=== PATIENT | female | born 1950 | race Caucasian/White ===

== ENCOUNTER 2016-12-08 16:25 | Emergency (ER) | payer MEDICAID ==
[2016-12-08 16:34] VITALS: TEMP 97.7
--- NOTE | 2016-12-08 16:36 | EDPHY ---
H & P Stated Complaint: dizzy, feels a pulse, while walking to gym HPI/ROS: CHIEF COMPLAINT: SVT HISTORY OF PRESENT ILLNESS: Patient is a 65-year-old female who comes to the emergency department complaining of SVT. She states that she began having palpitations and feeling lightheaded about 10 minutes ago. She has had multiple episodes of SVT in her life. She was worked up in [place] for possible ablation but ultimately did not have it done. She has not had any recent fevers or illness. She denies chest pain or shortness of breath. REVIEW OF SYSTEMS: Constitutional: denies: chills, fever, recent illness, recent injury EENTM: denies: blurred vision, double vision, nose congestion Respiratory: denies: cough, shortness of breath Cardiac: See HPI Gastrointestinal/Abdominal: denies: abdominal pain, diarrhea, nausea, vomiting, blood streaked stools Genitourinary: denies: dysuria, frequency, hematuria, pain Musculoskeletal: denies: joint pain, muscle pain Skin: denies: lesions, rash, jaundice, bruising Neurological: denies: headache, numbness, paresthesia, tingling, dizziness, weakness Hematologic/Lymphatic: denies: blood clots, easy bleeding, easy bruising Immunologic/allergic: denies: HIV/AIDS, transplant EXAM: GENERAL: Well-appearing, well-nourished and in no acute distress. HEAD: Atraumatic, normocephalic. EYES: Pupils equal round and reactive to light, extraocular movements intact, sclera anicteric, conjunctiva are normal. ENT: TMs normal, nares patent, oropharynx clear without exudates. Moist mucous membranes. NECK: Normal range of motion, supple without lymphadenopathy or JVD. LUNGS: Breath sounds clear to auscultation bilaterally and equal. No wheezes rales or rhonchi. HEART: Tachycardia, regular ABDOMEN: Soft, nontender, normoactive bowel sounds. No guarding, no rebound. No masses appreciated. BACK: No CVA tenderness, no spinal tenderness, step-offs or deformities EXTREMITIES: Normal range of motion, no pitting or edema. No clubbing or cyanosis. NEUROLOGICAL: Cranial nerves II through XII grossly intact. Normal speech, normal gait. 5/5 strength, normal movement in all extremities, normal sensation PSYCH: Normal mood, normal affect. SKIN: Warm, dry, normal turgor, no visible rashes or lesions. Source: Patient Exam Limitations: No limitations - Personal History Current Tetanus/Diphtheria Vaccine: Yes Current Tetanus Diphtheria and Acellular Pertussis (TDAP): Yes - Medical/Surgical History Hx Asthma: No Hx Chronic Respiratory Disease: No Hx Diabetes: No Hx Cardiac Disease: Yes Hx Renal Disease: No Hx Cirrhosis: No Hx Alcoholism: Yes Hx HIV/AIDS: No Hx Splenectomy or Spleen Trauma: No Other PMH: PTSD/depression, high cholesterol, kidney stones, SVT, MRI shows TBI. Hx alcohol. - Family History Significant Family History: No pertinent family hx - Social History Smoking Status: Never smoked Alcohol Use: Sober Drug Use: None Constitutional: Initial Vital Signs Temperature (C) 36.5 C 12/08/16 16:28 Heart Rate 190 H 12/08/16 16:28 Respiratory Rate 18 12/08/16 16:28 Blood Pressure 100/73 12/08/16 16:28 O2 Sat (%) 98 12/08/16 16:28 O2 Delivery Mode Room Air O2 (L/minute) 2 Allergies/Adverse Reactions: Sulfa (Sulfonamide Antibiotics) Allergy (Intermediate, Verified 08/28/16 13:25) Hives Home Medications: Medication Instructions Recorded Atenolol [Tenormin 25 mg (*)] 25 mg PO DAILY PRN 06/12/16 Atorvastatin Calcium [Lipitor 20 20 mg PO HS 06/12/16 mg (*)] Cholecalciferol Vit D3 [Vitamin D3 1,000 units PO DAILY 06/12/16 (*)] Disulfiram [Antabuse 250 MG (*)] 125 mg PO DAILY 06/12/16 Donepezil HCl [Aricept] 10 mg PO HS 06/12/16 Herbals/Supplements -Info Only 1 ea PO DAILY 06/12/16 Venlafaxine Xr [Effexor Xr] 150 mg PO DAILY 06/12/16 buPROPion SR [Wellbutrin 100mg SR 100 mg PO DAILY 06/12/16 (*)] Cetirizine [ZyrTEC 10 mg (*)] 10 mg PO DAILY #0 tab 06/18/16 Fluticasone Nasal [Flonase Nasal 1 sprays [place] DAILY #0 mdi 06/18/16 [place]] Medical Decision Making - Diagnostics EKG Interpretation: An EKG obtained and was read and documented in trace view. Please see trace view for full reading and report. SVT rate of 185 An EKG obtained and was read and documented in trace view. Please see trace view for full reading and report. Sinus rhythm, no acute ischemic changes Procedures: Cardioversion: The patient was cardioverted with 12 mg adenosine. This is successful on 1st attempt. ED Course/Re-evaluation: The patient's successfully cardioverted on 1st attempt. Spoke with Dr. Marc Villalobos who agrees with discharge and will follow up in the office. 5:30 p.m. the patient is doing well. She remains in sinus rhythm. Her vital signs are stable. She declines further workup or testing. She is eager to go home. We will have case management speak with her m[facility] to try and arrange transfer. Differential Diagnosis: Partial list of the Differential diagnosis considered include but were not limited to; SVT, atrial fibrillation, atrial flutter and although unlikely based on the history and physical exam, I also considered infection, acute coronary disease. I discussed these differential diagnoses and the plan with the patient as well as the usual and expected course. The patient understands that the diagnosis is provisional and that in medicine we are not always correct and that further workup is often warranted. Usual and customary warnings were given. All of the patient's questions were answered. The patient was instructed to return to the emergency department should the symptoms at all worsen or return, otherwise to followup with the physician as we discussed. - Data Points Medications Given: Discontinued Medications Adenosine (Adenosine) 12 mg IVP EDNOW ONE Stop: 12/08/16 16:43 Last Admin: 12/08/16 16:48 Dose: 12 mg Sodium Chloride (Ns) 1,000 mls @ 0 mls/hr IV ONCE ONE PRN Reason: Wide Open Stop: 12/08/16 16:48 Last Admin: 12/08/16 16:47 Dose: 1,000 mls Departure - Departure Disposition: Home, Routine, Self-Care Clinical Impression: Supraventricular tachycardia Condition: Fair Instructions: Supraventricular Tachycardia (ED) Referrals: Patient,NotPresent [Primary Care Provider] - As per Instructions David Bowers MD [Medical Doctor] - As per Instructions
--- NOTE | 2016-12-08 16:39 | CPEKG ---
Heart Rate: 185 RR Interval: 324 QRSD Interval: 94 QT Interval: 276 QTC Interval: 485 P [place]: 0 QRS [place]: -14 T Wave [place]: -87 EKG Severity - ABNORMAL ECG - EKG Impression: SUPRAVENTRICULAR TACHYCARDIA EKG Impression: REPOLARIZATION ABNORMALITY, PROB RATE RELATED Electronically Signed By: Andres Blair 08-Dec-2016 16:53:48
[2016-12-08] MEDS ORDERED: ADENOSINE 6 MG/2 ML VIAL IVP ONE (16:42)
[2016-12-08] MEDS ORDERED: NS 1,000 ML IV ONE (16:47)
[2016-12-08 16:58] VITALS: RESP 16
[2016-12-08 17:34] VITALS: BP 125/76; PULSE 95; O2SAT 98
[2016-12-08] MEDS ORDERED: ATROPINE SULFATE 1 MG/10 ML SYR IVP ONE (20:00)
--- NOTE | 2016-12-09 08:16 | CPEKG ---
Heart Rate: 98 RR Interval: 612 P-R Interval: 160 QRSD Interval: 84 QT Interval: 356 QTC Interval: 455 P [place]: 48 QRS [place]: 16 T Wave [place]: -21 EKG Severity - BORDERLINE ECG - EKG Impression: SINUS RHYTHM EKG Impression: LOW VOLTAGE IN FRONTAL LEADS EKG Impression: BORDERLINE T ABNORMALITIES, INFERIOR LEADS Electronically Signed By: Han Rubin 09-Dec-2016 16:55:09
== END 2016-12-08 17:47 | disposition home or self-care (01) ==
LOC: EDUNIT#
DX: I47.1 Supraventricular tachycardia (principal)
CPT/HCPCS: 96374; J0153

== ENCOUNTER 2016-12-18 12:46 | Emergency (ER) | payer MEDICAID ==
[2016-12-18 12:55] VITALS: BP 135/95; PULSE 85; RESP 18; TEMP 97.7; O2SAT 96
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
--- NOTE | 2016-12-18 14:18 | DX ---
Chest, PA and lateral. History: Chest pain. Shortness of breath. Findings: Heart size is within normal limits. Pulmonary vascularity is normal. The lungs are clear. No evidence of pleural effusion or pneumothorax. Mild degenerative change is seen in the thoracic sp ine. Mild anterior wedge compression deformity is seen of T7 and T8 vertebral bodies. The aorta is to rtuous. Impression: No evidence of acute cardiopulmonary abnormality. Chronic findings as above.
[2016-12-18] MEDS ORDERED: CEFTRIAXONE IM 350 MG/ML SYRINGE IM ONE (16:36)
[2016-12-18] MEDS ORDERED: DOXYCYCLINE HYCLATE 100 MG CAP/TAB ONE (19:34)
[2016-12-18] MEDS ORDERED: DOXYCYCLINE 100 MG PREPACK#2 BTL TAKEHOME ONE ×2 (19:39→19:42)
[2016-12-18] MEDS ORDERED: DOXYCYCLINE HYCLATE 100 MG CAP/TAB PO ONE (19:42)
== END 2016-12-18 19:23 | disposition home or self-care (01) ==
LOC: EEVIPCON 12:46
DX: T76.21XA Adult sexual abuse, suspected, initial encounter (principal)
CPT/HCPCS: J0696

== ENCOUNTER 2016-12-19 16:22 | Emergency (ER) | payer MEDICAID ==
[2016-12-19 16:41] VITALS: TEMP 98.1
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
[2016-12-19 19:35] VITALS: BP 141/86; PULSE 75; RESP 16; O2SAT 95
== END 2016-12-19 20:32 | disposition home or self-care (01) ==
LOC: EDUNIT#
DX: R07.89 Other chest pain (principal)

== ENCOUNTER 2017-01-30 19:02 | Emergency (ER) | payer MEDICAID ==
[2017-01-30] MEDS ORDERED: NS 1,000 ML IV ONE (19:06)
--- NOTE | 2017-01-30 19:09 | CPEKG ---
Heart Rate: 83 RR Interval: 723 P-R Interval: 160 QRSD Interval: 84 QT Interval: 380 QTC Interval: 447 P [place]: 66 QRS [place]: 47 T Wave [place]: 43 EKG Severity - BORDERLINE ECG - EKG Impression: SINUS RHYTHM Electronically Signed By: Harlan Jerez 30-Jan-2017 19:18:45
--- NOTE | 2017-01-30 19:11 | EDPHY ---
H & P Time Seen by Provider: 01/30/17 19:06 HPI/ROS: CHIEF COMPLAINT: Recurrent SVT HISTORY OF PRESENT ILLNESS: The patient is brought in by paramedics after she developed a recurrent SVT. She reportedly developed symptoms of lightheadedness and tachycardia approximately 1 hour ago. The patient lives at a assisted living facility and paramedics were notified. They arrived to find the patient in SVT with a heart rate in the 200s. She was diaphoretic with a faint radial pulse. The patient did received 12 mg of adenosine by paramedics which resulted in a conversion to a normal sinus rhythm. The patient has gradually had symptoms of improving strength since that chemical cardioversion. The patient tells me she has had no chest pain or shortness of breath. She has had no recent abdominal pain, fever, cough, vomiting or diarrhea. The patient has had a history of SVT occur in the past. She was in the emergency department approximately 1 and half months ago with similar symptoms treated with adenosine. REVIEW OF SYSTEMS: A comprehensive 10 point review of systems is otherwise negative aside from elements mentioned in the history of present illness. Source: Patient Exam Limitations: No limitations - Medical/Surgical History Hx Asthma: No Hx Chronic Respiratory Disease: No Hx Diabetes: No Hx Cardiac Disease: Yes Hx Renal Disease: No Hx Cirrhosis: No Hx Alcoholism: Yes Hx HIV/AIDS: No Hx Splenectomy or Spleen Trauma: No Other PMH: PTSD/depression, high cholesterol, kidney stones, SVT, MRI shows TBI. Hx alcohol. - Social History Smoking Status: Never smoked - Physical Exam Exam: General Appearance: Alert, no distress Eyes: Pupils equal and round no pallor or injection ENT, Mouth: Mucous membranes moist Respiratory: There are no retractions, lungs are clear to auscultation Cardiovascular: Regular rate and rhythm Gastrointestinal: Abdomen is soft and nontender, no masses, bowel sounds normal Neurological: A&O, normal motor function, normal sensory exam, normal cranial nerves Skin: Warm and dry, no rashes Musculoskeletal: Neck is supple nontender Extremities: symmetrical, full range of motion Constitutional: Initial Vital Signs Temperature (C) 36.5 C 01/30/17 19:13 Heart Rate 86 01/30/17 19:13 Respiratory Rate 16 01/30/17 19:13 Blood Pressure 110/77 01/30/17 19:13 O2 Sat (%) 98 01/30/17 19:13 O2 Delivery Mode Room Air Allergies/Adverse Reactions: Sulfa (Sulfonamide Antibiotics) Allergy (Intermediate, Verified 01/30/17 19:15) Hives Home Medications: Medication Instructions Recorded Atenolol [Tenormin 25 mg (*)] 25 mg PO DAILY PRN 06/12/16 Atorvastatin Calcium [Lipitor 20 20 mg PO HS 06/12/16 mg (*)] Cholecalciferol Vit D3 [Vitamin D3 1,000 units PO DAILY 06/12/16 (*)] Donepezil HCl [Aricept] 10 mg PO HS 06/12/16 Herbals/Supplements -Info Only 1 ea PO DAILY 06/12/16 Venlafaxine Xr [Effexor Xr] 150 mg PO DAILY 06/12/16 buPROPion SR [Wellbutrin 100mg SR 100 mg PO DAILY 06/12/16 (*)] Cetirizine [ZyrTEC 10 mg (*)] 10 mg PO DAILY #0 tab 06/18/16 Fluticasone Nasal [Flonase Nasal 1 sprays [place] DAILY #0 mdi 06/18/16 [place]] Doxycycline Hyclate [Vibramycin] 100 mg PO BID #14 cap 12/18/16 Medical Decision Making - Diagnostics EKG Interpretation: EKG: Complete interpretation has been separately recorded in the [facility] archive. Summary impression: Sinus rhythm, rate 83 ED Course/Re-evaluation: The patient presents to the ED after a successful chemical cardioversion by EMS. The patient arrives hemodynamically stable. She had an IV established and received a L of normal saline. The patient was placed on a computer systems design analyst. I reviewed the patient's past medical records including the details of her Emergency Department visit in November for SVT. The patient was given IV fluids as she was diaphoretic upon arrival. She was observed in the ED on a computer systems design analyst for an hour and half without recurrent arrhythmia. Re-evaluated at 8:40 p.m.: No acute distress, vital signs stable. Patient would like to be discharged home. She does plan to follow up with her regular bridges supervisor Dr. Villalobos. The patient is informed to return to the ED for any recurrent arrhythmia, difficulty breathing or other concerns. Differential Diagnosis: Differential diagnosis considered includes SVT, atrial fibrillation, ventricular tachycardia - Data Points Laboratory Results: Laboratory Results 03/04/17 19:15 01/30/17 19:15 01/30/17 01/30/17 19:15 19:15 WBC 6.04 10^3/uL 10^3/uL (3.80-9.50) RBC 4.32 10^6/uL 10^6/uL (4.18-5.33) Hgb 12.4 g/dL L g/dL (12.6-16.3) Hct 36.7 % L % (38.0-47.0) MCV 85.0 fL fL (81.5-99.8) MCH 28.7 pg pg (27.9-34.1) MCHC 33.8 g/dL g/dL (32.4-36.7) RDW 13.1 % % (11.5-15.2) Plt Count 261 10^3/uL 10^3/uL (150-400) MPV 9.9 fL fL (8.7-11.7) Neut % (Auto) 61.1 % % (39.3-74.2) Lymph % (Auto) 28.8 % % (15.0-45.0) [place] % (Auto) 8.3 % % (4.5-13.0) Eos % (Auto) 0.8 % % (0.6-7.6) Baso % (Auto) 0.8 % % (0.3-1.7) Nucleat RBC Rel Count 0.0 % % (0.0-0.2) Absolute Neuts (auto) 3.69 10^3/uL 10^3/uL (1.70-6.50) Absolute Lymphs (auto) 1.74 10^3/uL 10^3/uL (1.00-3.00) Absolute Monos (auto) 0.50 10^3/uL 10^3/uL (0.30-0.80) Absolute Eos (auto) 0.05 10^3/uL 10^3/uL (0.03-0.40) Absolute Basos (auto) 0.05 10^3/uL 10^3/uL (0.02-0.10) Absolute Nucleated RBC 0.00 10^3/uL 10^3/uL (0-0.01) Immature Gran % 0.2 % % (0.0-1.1) Immature Gran # 0.01 10^3/uL 10^3/uL (0.00-0.10) Sodium 144 mEq/L mEq/L (134-144) Potassium 3.9 mEq/L mEq/L (3.5-5.2) Chloride 108 mEq/L mEq/L (97-110) Carbon Dioxide 24 mEq/l mEq/l (22-31) Anion Gap 12 mEq/L mEq/L (8-16) BUN 17 mg/dL mg/dL (7-23) Creatinine 1.0 mg/dL mg/dL (0.6-1.0) Estimated GFR 56 Glucose 134 mg/dL H mg/dL (70-100) Calcium 10.3 mg/dL mg/dL (8.5-10.4) Medications Given: Discontinued Medications Sodium Chloride (Ns) 1,000 mls @ 0 mls/hr IV ONCE ONE PRN Reason: Wide Open Stop: 01/30/17 19:07 Last Admin: 01/30/17 19:20 Dose: 1,000 mls Departure - Departure Disposition: Home, Routine, Self-Care Clinical Impression: Supraventricular tachycardia Condition: Good Instructions: Supraventricular Tachycardia (ED) Additional Instructions: 1. Return to the ED for recurrent arrhythmia, chest pain, shortness of breath or other concerns. 2. Please follow up with your bridges supervisor as scheduled. Referrals: Ross Villalobos MD [Medical Doctor] - As per Instructions
[2017-01-30 19:15] VITALS: TEMP 97.7; O2SAT 98
[2017-01-30 19:24] LABS: % IMMATURE GRANULYOCYTES 0.2 % (0.0-1.1); ABSOLUTE IMMATURE GRANULOCYTES 0.01 10^3/uL (0.00-0.10); ADD DIFF? NO; ADD MORPH? NO; ADD SCAN? NO; ATYPICAL LYMPHOCYTE FLAG 0 (0-99); FRAGMENT RBC FLAG 0 (0-99); HEMATOCRIT 36.7 % (38.0-47.0); HEMOGLOBIN 12.4 g/dL (12.6-16.3); LEFT SHIFT FLG 0 (0-99); LIPEMIA HEMOLYSIS FLAG 90 (0-99); MEAN CELL HEMOGLOBIN 28.7 pg (27.9-34.1); MEAN CELL HEMOGLOBIN CONCENTR. 33.8 g/dL (32.4-36.7); MEAN PLATELET VOLUME 9.9 fL (8.7-11.7); PLATELET CLUMPS FLAG 0 (0-99); PLATELET COUNT 261 10^3/uL (150-400); RED BLOOD CELL COUNT 4.32 10^6/uL (4.18-5.33); RED CELL DISTRIBUTION WIDTH 13.1 % (11.5-15.2)
[2017-01-30 19:33] LABS: ANION GAP 12 mEq/L (8-16); CALCIUM 10.3 mg/dL (8.5-10.4); CARBON DIOXIDE 24 mEq/l (22-31); CHLORIDE 108 mEq/L (97-110); GLOMERULAR FILTRATION RATE 56; GLUCOSE 134 mg/dL (70-100); POTASSIUM 3.9 mEq/L (3.5-5.2); SODIUM 144 mEq/L (134-144)
[2017-01-30 20:51] VITALS: BP 104/71; PULSE 92; RESP 18
== END 2017-01-30 20:50 | disposition home or self-care (01) ==
LOC: EDUNIT#
DX: I47.1 Supraventricular tachycardia (principal)

== ENCOUNTER 2017-02-25 19:29 | Emergency (ER) | payer MEDICAID ==
[2017-02-25 19:37] VITALS: TEMP 97.7
--- NOTE | 2017-02-25 19:45 | CPEKG ---
Heart Rate: 84 RR Interval: 714 P-R Interval: 168 QRSD Interval: 86 QT Interval: 412 QTC Interval: 488 P [place]: 63 QRS [place]: 29 T Wave [place]: -1 EKG Severity - BORDERLINE ECG - EKG Impression: SINUS RHYTHM EKG Impression: LOW VOLTAGE IN FRONTAL LEADS EKG Impression: BORDERLINE PROLONGED QT INTERVAL Electronically Signed By: Neville Caballero 25-Feb-2017 21:26:08
--- NOTE | 2017-02-25 19:48 | EDPHY ---
H & P Time Seen by Provider: 02/25/17 19:35 HPI/ROS: Chief complaint. Fast heart rate HPI. 66-year-old female presents emergency department by EMS after having sudden onset fast heart rate. She was near syncopal with standing and better with lying down. She did not have chest pain or shortness of breath. She has had SVT previously. EMS tried fluid bolus and vagal maneuvers and then she was given adenosine 12 mg IV which converted her to normal sinus rhythm. She feels much better now ROS Constitutional. Weakness Eyes. no problems with vision ENT. no sore throat, no nasal drainage Cardiovascular. No chest pain but fast heart rate Respiratory. no shortness of breath, no cough Abdominal. no abdominal pain, no nausea/vomiting, no diarrhea . no problems urinating MS. no calf pain/swelling, no neck/back pain, no joint pain Skin. no rash Lymph. no swollen glands Neuro. Near syncope Past Medical/Surgical History: TBI, dyslipidemia, SVT Social History: , nonsmoker, no alcohol Smoking Status: Never smoked Physical Exam: General Appearance: Alert well-developed female mild distress vital signs are stable Eyes: Pupils equal and round no pallor or injection. ENT, Mouth: Mucous membranes are moist. Respiratory: There are no retractions, lungs are clear to auscultation. Cardiovascular: Regular rate and rhythm. Gastrointestinal: Abdomen is soft and nontender, no masses, bowel sounds normal. Neurological: Awake and alert, sensory and motor exams grossly normal. Skin: Warm and dry, no rashes. Musculoskeletal: Neck is supple nontender. Extremities symmetrical, full range of motion. Psychiatric: Patient is oriented X 3, there is no agitation. Constitutional: Initial Vital Signs Temperature (C) 36.5 C 02/25/17 19:34 Heart Rate 85 02/25/17 19:34 Respiratory Rate 16 02/25/17 19:34 Blood Pressure 111/78 02/25/17 19:34 O2 Sat (%) 97 02/25/17 19:34 O2 Delivery Mode Room Air Allergies/Adverse Reactions: Sulfa (Sulfonamide Antibiotics) Allergy (Intermediate, Verified 02/25/17 19:42) Hives Home Medications: Medication Instructions Recorded Atenolol [Tenormin 25 mg (*)] 25 mg PO DAILY PRN 06/12/16 Atorvastatin Calcium [Lipitor 20 20 mg PO HS 06/12/16 mg (*)] Cholecalciferol Vit D3 [Vitamin D3 1,000 units PO DAILY 06/12/16 (*)] Donepezil HCl [Aricept] 10 mg PO HS 06/12/16 Herbals/Supplements -Info Only 1 ea PO DAILY 06/12/16 Venlafaxine Xr [Effexor Xr] 150 mg PO DAILY 06/12/16 buPROPion SR [Wellbutrin 100mg SR 100 mg PO DAILY 06/12/16 (*)] Cetirizine [ZyrTEC 10 mg (*)] 10 mg PO DAILY #0 tab 06/18/16 Fluticasone Nasal [Flonase Nasal 1 sprays [place] DAILY #0 mdi 06/18/16 [place]] Doxycycline Hyclate [Vibramycin] 100 mg PO BID #14 cap 12/18/16 Medical Decision Making Procedures: IV normal saline, monitor ED Course/Re-evaluation: 8:40 p.m. re-evaluation patient remained stable. Heart rate 91. Patient without complaints. Her potassium is slightly low so she is given 20 mEq orally in the emergency department The patient, her , and I discussed laboratory evaluation, treatment plan including including criteria for return importance of follow-up and further evaluation. They expressed understanding and agreement. Differential Diagnosis: On review of the EMS EKG and patient's old records the I believe she had SVT. I considered other arrhythmia including atrial fibrillation and ventricular tachycardia. I considered acute coronary syndrome as well as electrolyte abnormality - Data Points Laboratory Results: Laboratory Results 02/25/17 19:20 02/25/17 19:20 02/25/17 02/25/17 19:20 19:20 WBC 7.65 10^3/uL 10^3/uL (3.80-9.50) RBC 4.69 10^6/uL 10^6/uL (4.18-5.33) Hgb 13.7 g/dL g/dL (12.6-16.3) Hct 40.7 % % (38.0-47.0) MCV 86.8 fL fL (81.5-99.8) MCH 29.2 pg pg (27.9-34.1) MCHC 33.7 g/dL g/dL (32.4-36.7) RDW 13.0 % % (11.5-15.2) Plt Count 341 10^3/uL 10^3/uL (150-400) MPV 11.0 fL fL (8.7-11.7) Neut % (Auto) 51.7 % % (39.3-74.2) Lymph % (Auto) 39.6 % % (15.0-45.0) [place] % (Auto) 6.9 % % (4.5-13.0) Eos % (Auto) 1.0 % % (0.6-7.6) Baso % (Auto) 0.7 % % (0.3-1.7) Nucleat RBC Rel Count 0.0 % % (0.0-0.2) Absolute Neuts (auto) 3.95 10^3/uL 10^3/uL (1.70-6.50) Absolute Lymphs (auto) 3.03 10^3/uL H 10^3/uL (1.00-3.00) Absolute Monos (auto) 0.53 10^3/uL 10^3/uL (0.30-0.80) Absolute Eos (auto) 0.08 10^3/uL 10^3/uL (0.03-0.40) Absolute Basos (auto) 0.05 10^3/uL 10^3/uL (0.02-0.10) Absolute Nucleated RBC 0.00 10^3/uL 10^3/uL (0-0.01) Immature Gran % 0.1 % % (0.0-1.1) Immature Gran # 0.01 10^3/uL 10^3/uL (0.00-0.10) Sodium 140 mEq/L mEq/L (134-144) Potassium 3.3 mEq/L L mEq/L (3.5-5.2) Chloride 103 mEq/L mEq/L (97-110) Carbon Dioxide 21 mEq/l L mEq/l (22-31) Anion Gap 16 mEq/L mEq/L (8-16) BUN 13 mg/dL mg/dL (7-23) Creatinine 1.1 mg/dL H mg/dL (0.6-1.0) Estimated GFR 50 Glucose 135 mg/dL H mg/dL (70-100) Calcium 10.9 mg/dL H mg/dL (8.5-10.4) Phosphorus 2.7 mg/dL mg/dL (2.5-4.5) Troponin I < 0.012 ng/mL ng/mL (0-0.034) Medications Given: Discontinued Medications Potassium Chloride (Klor Packets) 20 meq PO EDNOW ONE Stop: 02/25/17 20:37 Last Admin: 02/25/17 20:42 Dose: 20 meq Potassium Chloride (Klor-Con) 20 meq PO EDNOW ONE Stop: 02/25/17 20:40 Last Admin: 02/25/17 20:42 Dose: Not Given Departure - Departure Disposition: Home, Routine, Self-Care Clinical Impression: Supraventricular tachycardia Condition: Good Instructions: Supraventricular Tachycardia (ED) Additional Instructions: Return for worsening symptoms. Please call Dr. Villalobos tomorrow to schedule follow-up appointment with cardiology. Referrals: Patient,NotPresent [Unknown] - As per Instructions Ross Villalobos MD [Medical Doctor] - 2-3 days, call for appt.
[2017-02-25 19:54] LABS: % IMMATURE GRANULYOCYTES 0.1 % (0.0-1.1); ABSOLUTE IMMATURE GRANULOCYTES 0.01 10^3/uL (0.00-0.10); ADD DIFF? NO; ADD MORPH? NO; ADD SCAN? NO; ATYPICAL LYMPHOCYTE FLAG 0 (0-99); FRAGMENT RBC FLAG 0 (0-99); HEMATOCRIT 40.7 % (38.0-47.0); HEMOGLOBIN 13.7 g/dL (12.6-16.3); LEFT SHIFT FLG 0 (0-99); LIPEMIA HEMOLYSIS FLAG 80 (0-99); MEAN CELL HEMOGLOBIN 29.2 pg (27.9-34.1); MEAN CELL HEMOGLOBIN CONCENTR. 33.7 g/dL (32.4-36.7); MEAN CELL VOLUME 86.8 fL (81.5-99.8); PLATELET CLUMPS FLAG 0 (0-99); PLATELET COUNT 341 10^3/uL (150-400); RED BLOOD CELL COUNT 4.69 10^6/uL (4.18-5.33)
[2017-02-25 20:00] LABS: ANION GAP 16 mEq/L (8-16); CALCIUM 10.9 mg/dL (8.5-10.4); CARBON DIOXIDE 21 mEq/l (22-31); CHLORIDE 103 mEq/L (97-110); CREATININE 1.1 mg/dL (0.6-1.0); GLOMERULAR FILTRATION RATE 50; GLUCOSE 135 mg/dL (70-100); POTASSIUM 3.3 mEq/L (3.5-5.2); SODIUM 140 mEq/L (134-144)
[2017-02-25 20:11] LABS: TROPONIN I < 0.012 ng/mL (0-0.034)
[2017-02-25 20:14] VITALS: BP 123/82; PULSE 80; RESP 18; O2SAT 95
[2017-02-25] MEDS ORDERED: POTASSIUM CL 20 MEQ PKT PO ONE (20:36)
[2017-02-25] MEDS ORDERED: POTASSIUM CL 20 MEQ TAB PO ONE (20:39)
== END 2017-02-25 21:00 | disposition home or self-care (01) ==
LOC: EDUNIT#
DX: I47.1 Supraventricular tachycardia (principal)

== ENCOUNTER 2017-03-14 13:52 | Emergency (ER) | payer MEDICAID ==
--- NOTE | 2017-03-14 13:58 | EDPHY ---
HPI/HX/ROS/PE/MDM Narrative: CHIEF COMPLAINT: palpitations, SVT HPI: The patient is a 66 y/o female, with a history of SVT, arriving via EMS after a now-resolved episode of SVT onset today about 1 hour ago. She reports approximately 15 episodes of SVT that have all been chemically corrected. She is not taking any cardiac medications and has not followed up with a senior asic engineer since her last visit on 02/25/17 for the same complaint. Today she developed palpitations and lightheadedness around 13:00. EMS found her symptomatic with a HR 200 and normotensive. She converted successfully with 12mg adenosine. She denies associated chest pain, dyspnea, or loss of consciousness. REVIEW OF SYSTEMS: Aside from elements discussed in the HPI, a comprehensive 10-point review of systems was reviewed and is negative. PMH: Major depression, hypercholesteremia, SVT SOCIAL HISTORY: . Lives in [place]. Prior medical records reviewed including ED visit 02/25/17 for rapid heart rate. PHYSICAL EXAM: General:Patient is alert, in no acute distress. ENT:Eyes are normal to inspection. ENT inspection normal. Neck: Normal inspection. Full range of motion. Respiratory:No respiratory distress. Breath sounds normal bilaterally. Cardiovascular: Regular rate and rhythm. Strong peripheral pulses. Normal cap refill. Abdomen:The abdomen is nontender to palpation. There are no peritoneal signs. There are normal bowel sounds. Back: Normal to inspection. No tenderness to palpation. Skin: Normal color. No rash. Warm and dry. Extremities: Normal appearance. Full range of motion. Neuro: Oriented x3. Normal motor function. Normal sensory function. ED Course: IV established by EMS. Basic labs drawn. Patient placed on monitor and storage bin tender. 1L IV NS administered. The 12 lead EKG was interpreted by myself. See hard copy and/or "tracemaster" electronic copy for interpretation. 1502: Reevaluated patient. She is feeling well without recurrent episodes of palpitations or SVT on the monitor. I've recommended following up with her senior asic engineer this week. She agrees with plan. Return precautions given. MDM: This patient presents after episode of SVT that was terminated by EMS with adenosine. The patient is asymptomatic and her labs are normal. I see no indication for admission or further testing. She is comfortable with the plan to be discharged home and follow-up with cardiology. - Data Points Laboratory Results: Laboratory Results 03/14/17 14:15 03/14/17 14:15 03/14/17 03/14/17 14:15 14:15 WBC 5.61 10^3/uL 10^3/uL (3.80-9.50) RBC 4.44 10^6/uL 10^6/uL (4.18-5.33) Hgb 12.7 g/dL g/dL (12.6-16.3) Hct 39.5 % % (38.0-47.0) MCV 89.0 fL fL (81.5-99.8) MCH 28.6 pg pg (27.9-34.1) MCHC 32.2 g/dL L g/dL (32.4-36.7) RDW 12.9 % % (11.5-15.2) Plt Count 247 10^3/uL 10^3/uL (150-400) MPV 10.8 fL fL (8.7-11.7) Neut % (Auto) 47.9 % % (39.3-74.2) Lymph % (Auto) 40.8 % % (15.0-45.0) [place] % (Auto) 8.6 % % (4.5-13.0) Eos % (Auto) 1.8 % % (0.6-7.6) Baso % (Auto) 0.7 % % (0.3-1.7) Nucleat RBC Rel Count 0.0 % % (0.0-0.2) Absolute Neuts (auto) 2.69 10^3/uL 10^3/uL (1.70-6.50) Absolute Lymphs (auto) 2.29 10^3/uL 10^3/uL (1.00-3.00) Absolute Monos (auto) 0.48 10^3/uL 10^3/uL (0.30-0.80) Absolute Eos (auto) 0.10 10^3/uL 10^3/uL (0.03-0.40) Absolute Basos (auto) 0.04 10^3/uL 10^3/uL (0.02-0.10) Absolute Nucleated RBC 0.00 10^3/uL 10^3/uL (0-0.01) Immature Gran % 0.2 % % (0.0-1.1) Immature Gran # 0.01 10^3/uL 10^3/uL (0.00-0.10) Sodium 143 mEq/L mEq/L (134-144) Potassium 3.8 mEq/L mEq/L (3.5-5.2) Chloride 106 mEq/L mEq/L (97-110) Carbon Dioxide 25 mEq/l mEq/l (22-31) Anion Gap 12 mEq/L mEq/L (8-16) BUN 13 mg/dL mg/dL (7-23) Creatinine 0.9 mg/dL mg/dL (0.6-1.0) Estimated GFR > 60 Glucose 94 mg/dL mg/dL (70-100) Calcium 10.4 mg/dL mg/dL (8.5-10.4) Medications Given: Discontinued Medications Sodium Chloride (Ns) 1,000 mls @ 0 mls/hr IV ONCE ONE PRN Reason: Wide Open Stop: 03/14/17 14:16 Last Admin: 03/14/17 14:35 Dose: 1,000 mls General Initial Vital Signs: Initial Vital Signs Temperature (C) 36.5 C 03/14/17 14:09 Heart Rate 87 03/14/17 14:09 Respiratory Rate 20 03/14/17 14:09 Blood Pressure 122/79 H 03/14/17 14:09 O2 Sat (%) 96 03/14/17 14:09 O2 Delivery Mode Room Air Allergies/Adverse Reactions: Sulfa (Sulfonamide Antibiotics) Allergy (Intermediate, Verified 02/25/17 19:42) Hives Home Medications: Medication Instructions Recorded Atenolol [Tenormin 25 mg (*)] 25 mg PO DAILY PRN 06/12/16 Atorvastatin Calcium [Lipitor 20 20 mg PO HS 06/12/16 mg (*)] Cholecalciferol Vit D3 [Vitamin D3 1,000 units PO DAILY 06/12/16 (*)] Donepezil HCl [Aricept] 10 mg PO HS 06/12/16 Herbals/Supplements -Info Only 1 ea PO DAILY 06/12/16 Venlafaxine Xr [Effexor Xr] 150 mg PO DAILY 06/12/16 buPROPion SR [Wellbutrin 100mg SR 100 mg PO DAILY 06/12/16 (*)] Cetirizine [ZyrTEC 10 mg (*)] 10 mg PO DAILY #0 tab 06/18/16 Fluticasone Nasal [Flonase Nasal 1 sprays [place] DAILY #0 mdi 06/18/16 [place]] Doxycycline Hyclate [Vibramycin] 100 mg PO BID #14 cap 12/18/16 Departure - Departure Disposition: Home, Routine, Self-Care Clinical Impression: SVT (supraventricular tachycardia) Condition: Good Instructions: Supraventricular Tachycardia (ED) Additional Instructions: Follow up with your senior asic engineer this week. Return to the ED for worsening of symptoms. Referrals: GAMALIEL ALVES [Other] - As per Instructions David Bowers MD [Medical Doctor] - As per Instructions Report Scribed for: Tim Sales Report Scribed by: Nette Loya Date of Report: 03/14/17 Time of Report: 14:08 Physician Review and Approval Statement: Portions of this note were transcribed by an ED scribe. I personally performed the history, physical exam, and medical decision making; and confirm the accuracy of the information in the transcribed note.
--- NOTE | 2017-03-14 14:04 | CPEKG ---
Heart Rate: 80 RR Interval: 750 P-R Interval: 152 QRSD Interval: 86 QT Interval: 384 QTC Interval: 443 P [place]: 50 QRS [place]: -11 T Wave [place]: 11 EKG Severity - NORMAL ECG - EKG Impression: SINUS RHYTHM Electronically Signed By: Tim Sales 14-Mar-2017 20:07:10
[2017-03-14] MEDS ORDERED: NS 1,000 ML IV ONE (14:15)
[2017-03-14 14:25] LABS: % IMMATURE GRANULYOCYTES 0.2 % (0.0-1.1); ABSOLUTE IMMATURE GRANULOCYTES 0.01 10^3/uL (0.00-0.10); ADD DIFF? NO; ADD MORPH? NO; ADD SCAN? NO; ATYPICAL LYMPHOCYTE FLAG 0 (0-99); FRAGMENT RBC FLAG 0 (0-99); HEMATOCRIT 39.5 % (38.0-47.0); HEMOGLOBIN 12.7 g/dL (12.6-16.3); LEFT SHIFT FLG 0 (0-99); LIPEMIA HEMOLYSIS FLAG 80 (0-99); MEAN CELL HEMOGLOBIN 28.6 pg (27.9-34.1); MEAN CELL HEMOGLOBIN CONCENTR. 32.2 g/dL (32.4-36.7); MEAN PLATELET VOLUME 10.8 fL (8.7-11.7); PLATELET CLUMPS FLAG 0 (0-99); PLATELET COUNT 247 10^3/uL (150-400); RED BLOOD CELL COUNT 4.44 10^6/uL (4.18-5.33); RED CELL DISTRIBUTION WIDTH 12.9 % (11.5-15.2)
[2017-03-14 14:38] LABS: ANION GAP 12 mEq/L (8-16); CALCIUM 10.4 mg/dL (8.5-10.4); CARBON DIOXIDE 25 mEq/l (22-31); CHLORIDE 106 mEq/L (97-110); CREATININE 0.9 mg/dL (0.6-1.0); GLOMERULAR FILTRATION RATE > 60; GLUCOSE 94 mg/dL (70-100); POTASSIUM 3.8 mEq/L (3.5-5.2); SODIUM 143 mEq/L (134-144)
[2017-03-14 16:22] VITALS: BP 110/66; PULSE 81; RESP 15; TEMP 98.6; O2SAT 99
== END 2017-03-14 16:32 | disposition home or self-care (01) ==
LOC: EDUNIT#
DX: I47.1 Supraventricular tachycardia (principal)

== ENCOUNTER 2017-10-27 07:00 | Observation (INO) | payer MEDICAID ==
[2017-10-27] MEDS ORDERED: NS 1,000 ML IV ONE (07:05)
[2017-10-27] MEDS ORDERED: LIDOCAINE 1% 300 MG/30 ML SDV ONE (07:27)
[2017-10-27] MEDS ORDERED: ISOPROTERENOL HCL/D5W 0.2 MG/50 ML BAG IV ONE (07:27)
[2017-10-27] MEDS ORDERED: HEPARIN 10,000 UNIT/10 ML MDV ONE (07:27)
[2017-10-27] MEDS ORDERED: BUPIVACAINE 0.5% 30 ML SDV ONE (07:28)
--- NOTE | 2017-10-27 07:36 | CPEKG ---
Heart Rate: 70 RR Interval: 857 P-R Interval: 156 QRSD Interval: 94 QT Interval: 396 QTC Interval: 428 P [place]: 60 QRS [place]: 21 T Wave [place]: 14 EKG Severity - BORDERLINE ECG - EKG Impression: SINUS RHYTHM EKG Impression: BORDERLINE T WAVE ABNORMALITIES Electronically Signed By: Ernesto Corbin 27-Oct-2017 11:13:12
[2017-10-27 07:42] LABS: % IMMATURE GRANULYOCYTES 0.2 % (0.0-1.1); ABSOLUTE IMMATURE GRANULOCYTES 0.01 10^3/uL (0.00-0.10); ADD DIFF? NO; ADD MORPH? NO; ADD SCAN? NO; ATYPICAL LYMPHOCYTE FLAG 0 (0-99); FRAGMENT RBC FLAG 0 (0-99); HEMATOCRIT 40.2 % (38.0-47.0); HEMOGLOBIN 13.6 g/dL (12.6-16.3); LEFT SHIFT FLG 0 (0-99); LIPEMIA HEMOLYSIS FLAG 90 (0-99); MEAN CELL HEMOGLOBIN 29.5 pg (27.9-34.1); MEAN CELL HEMOGLOBIN CONCENTR. 33.8 g/dL (32.4-36.7); MEAN CELL VOLUME 87.2 fL (81.5-99.8); MEAN PLATELET VOLUME 9.7 fL (8.7-11.7); PLATELET CLUMPS FLAG 0 (0-99); PLATELET COUNT 232 10^3/uL (150-400); RED BLOOD CELL COUNT 4.61 10^6/uL (4.18-5.33); RED CELL DISTRIBUTION WIDTH 12.7 % (11.5-15.2)
[2017-10-27 07:53] LABS: INR 0.97 (0.83-1.16); PROTIME(PATIENT) 12.8 SEC (12.0-15.0)
[2017-10-27 07:54] LABS: APTT 30.9 SEC (23.0-38.0)
[2017-10-27 08:11] LABS: ANION GAP 11 mEq/L (8-16); CALCIUM 10.4 mg/dL (8.5-10.4); CARBON DIOXIDE 27 mEq/l (22-31); CHLORIDE 105 mEq/L (97-110); GLOMERULAR FILTRATION RATE 56; GLUCOSE 108 mg/dL (70-100); MAGNESIUM 2.1 mg/dL (1.6-2.3); POTASSIUM 4.1 mEq/L (3.5-5.2); SODIUM 143 mEq/L (134-144)
--- NOTE | 2017-10-27 08:15 | PDGENHP ---
History & Physical Chief Complaint: svt History of Present Illness: recurrent svt Relevant Physical Exam: s1s2 rrr. cta. ao x 3 Cardiorespiratory Assessment: svt despite beta blockers. for ablation procedure.
[2017-10-27] MEDS ORDERED: MIDAZOLAM 2 MG/2 ML VIAL IVP ONE (08:27)
--- NOTE | 2017-10-27 08:28 | PDANEPAE ---
ANE History of Present Illness SVT ANE Past Medical History - Pulmonary History Hx Oxygen in Use at Home: No Hx Sleep Apnea: No - Endocrine History Hx Diabetes: No - Chronic Pain History Chronic Pain: No ANE Review of Systems Review of Systems: ANE Patient History - Allergies Allergies/Adverse Reactions: Sulfa (Sulfonamide Antibiotics) Allergy (Intermediate, Verified 02/25/17 19:42) Hives - Home Medications Home Medications: Atenolol [Tenormin 25 mg (*)] 25 mg PO DAILY 06/12/16 [Last Taken 10/21/17 12:00 ] Donepezil HCl [Aricept] 10 mg PO HS 06/12/16 [Last Taken 10/26/17 20:00 10 mg] Herbals/Supplements -Info Only 1 ea PO DAILY 06/12/16 [Last Taken Unknown] Venlafaxine Xr [Effexor Xr] 300 mg PO DAILY 06/12/16 [Last Taken 10/27/17 05:00 300 mg] buPROPion SR [Wellbutrin 100mg SR (*)] 100 mg PO DAILY 06/12/16 [Last Taken 05:00 100 mg] Atenolol [Tenormin 25 mg (*)] 50 mg PO DAILY PRN 10/20/17 [Last Taken Unknown] Atorvastatin Calcium [Lipitor 10 mg (*)] 10 mg PO DAILY 10/20/17 [Last Taken 20:00 10 mg] Fluticasone Nasal [Flonase Nasal [place]] 1 sprays [place] DAILY PRN 10/20/17 [ Last Taken Unknown] - Smoking Hx Smoking Status: Never smoked ANE Labs/Vital Signs - Labs Result Diagrams: 10/27/17 07:15 10/27/17 07:15 - Vital Signs Height: 168 cm Weight: 72.6 kg ANE Physical Exam - Airway Neck exam: FROM Mallampati Score: Class 1 Mouth exam: normal dental/mouth exam - Pulmonary Pulmonary: no respiratory distress - Cardiovascular Cardiovascular: regular rate and rhythym - ASA Status ASA Status: II ANE Anesthesia Plan Anesthesia Plan: general endotracheal anesthesia
[2017-10-27] MEDS ORDERED: fentaNYL 100 MCG/2 ML INJ ONE ×2 (08:32)
[2017-10-27] MEDS ORDERED: PROPOFOL 200 MG/20 ML VIAL ONE (08:32)
[2017-10-27] MEDS ORDERED: ADENOSINE 6 MG/2 ML VIAL ONE (09:12)
[2017-10-27] MEDS ORDERED: PHENYLEPHRINE HCL 100 MCG/ML SYR ONE (09:28)
[2017-10-27] MEDS ORDERED: epHEDrine SULFATE 10 MG/ML SYR ONE ×4 (09:28→10:03)
[2017-10-27] MEDS ORDERED: ROCURONIUM 50 MG/5 ML VIAL ONE (09:39)
[2017-10-27] MEDS ORDERED: ACETAMINOPHEN 325 MG TAB PO PRN (11:07)
[2017-10-27] MEDS ORDERED: OXYCODONE/APAP 5/325 TAB PO PRN (11:07)
[2017-10-27] MEDS ORDERED: ONDANSETRON 4 MG/2 ML VIAL IVP PRN (11:07)
[2017-10-27] MEDS ORDERED: FLUTICASONE NASAL 120 SPRAYS/16 GM MDI EACHNARE PRN (11:09)
[2017-10-27] MEDS ORDERED: fentaNYL 100 MCG/2 ML INJ IVP PRN (11:20)
[2017-10-27] MEDS ORDERED: PROMETHAZINE HCL 25 MG/ML INJ IVP PRN (11:20)
[2017-10-27] MEDS ORDERED: HYDROmorphONE/DILAUDID 1 MG/ML INJ IVP PRN (11:20)
[2017-10-27] MEDS ORDERED: NALOXONE HCL 0.4 MG/ML INJ IVP PRN (11:20)
--- NOTE | 2017-10-27 11:21 | POSTANESTH ---
Post Anesthetic Evaluation Cardiovascular Status: Normal, Stable Respiratory Status: Normal, Stable Level of Consciousness/Mental Status: Can Participate in Eval Pain Control: Adequate, Prn Tx Ordered Nausea/Vomiting Control: Adequate, Prn Tx Ordered Complications Possibly Related to Anesthesia: None Noted
[2017-10-27] MEDS ORDERED: ATROPINE SULFATE 1 MG/10 ML SYR ONE (11:25)
[2017-10-27 12:11] LABS: ANION GAP 9 mEq/L (8-16); CALCIUM 9.2 mg/dL (8.5-10.4); CARBON DIOXIDE 25 mEq/l (22-31); CHLORIDE 108 mEq/L (97-110); CREATININE 0.9 mg/dL (0.6-1.0); GLOMERULAR FILTRATION RATE > 60; GLUCOSE 104 mg/dL (70-100); MAGNESIUM 1.8 mg/dL (1.6-2.3); POTASSIUM 3.9 mEq/L (3.5-5.2); SODIUM 142 mEq/L (134-144)
--- NOTE | 2017-10-27 13:36 | CPEKG ---
Heart Rate: 94 RR Interval: 638 P-R Interval: 140 QRSD Interval: 94 QT Interval: 368 QTC Interval: 461 P [place]: 57 QRS [place]: 17 T Wave [place]: 0 EKG Severity - BORDERLINE ECG - EKG Impression: SINUS RHYTHM EKG Impression: LOW VOLTAGE IN FRONTAL LEADS EKG Impression: BORDERLINE T WAVE ABNORMALITIES Electronically Signed By: Ernesto Corbin 28-Oct-2017 09:23:01
--- NOTE | 2017-10-27 15:15 | ASMTCMCOM ---
CM Note CM Note Notes: 10/27/2017 Case Management Note Reviewed chart. Pt admitted for ablation. No Case Management needs identified d/t pt age, family support and activity levels prior to admission. There are no PT or OT evals ordered. Case Management d/c poc: anticipating home independent when medically stable with follow up as directed. Case Management available if needs change. Date Signed: 10/27/2017 03:14 PM Electronically Signed By:Alicia Mcmahon RN
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
[2017-10-27 20:06] VITALS: RESP 16
[2017-10-27] MEDS ORDERED: DONEPEZIL HCL 5 MG TAB PO SCH (21:00)
[2017-10-28] MEDS ORDERED: DOCUSATE SODIUM 100 MG CAP PO SCH
[2017-10-28] MEDS ORDERED: ASPIRIN EC 81 MG TAB PO SCH
[2017-10-28 04:28] LABS: INR 0.96 (0.83-1.16)
[2017-10-28 04:33] LABS: % IMMATURE GRANULYOCYTES 0.2 % (0.0-1.1); ABSOLUTE IMMATURE GRANULOCYTES 0.01 10^3/uL (0.00-0.10); ADD DIFF? NO; ADD MORPH? NO; ADD SCAN? NO; ATYPICAL LYMPHOCYTE FLAG 0 (0-99); FRAGMENT RBC FLAG 0 (0-99); HEMATOCRIT 37.1 % (38.0-47.0); HEMOGLOBIN 12.2 g/dL (12.6-16.3); LEFT SHIFT FLG 0 (0-99); LIPEMIA HEMOLYSIS FLAG 80 (0-99); MEAN CELL HEMOGLOBIN 28.9 pg (27.9-34.1); MEAN CELL HEMOGLOBIN CONCENTR. 32.9 g/dL (32.4-36.7); MEAN CELL VOLUME 87.9 fL (81.5-99.8); PLATELET CLUMPS FLAG 0 (0-99); PLATELET COUNT 189 10^3/uL (150-400); RED BLOOD CELL COUNT 4.22 10^6/uL (4.18-5.33); RED CELL DISTRIBUTION WIDTH 12.7 % (11.5-15.2)
[2017-10-28 04:34] LABS: ANION GAP 11 mEq/L (8-16); CALCIUM 9.8 mg/dL (8.5-10.4); CARBON DIOXIDE 25 mEq/l (22-31); CHLORIDE 108 mEq/L (97-110); CREATININE 0.9 mg/dL (0.6-1.0); GLOMERULAR FILTRATION RATE > 60; GLUCOSE 95 mg/dL (70-100); POTASSIUM 4.1 mEq/L (3.5-5.2); SODIUM 144 mEq/L (134-144)
[2017-10-28 04:44] LABS: CK-MB INTERPRETATION NEGATIVE (NEGATIVE); TROPONIN I 0.071 ng/mL (0.000-0.034)
[2017-10-28 04:49] LABS: CREATINE KINASE-MB FRACTION 3.94 ng/mL (0.00-3.19)
[2017-10-28 07:35] VITALS: BP 124/72; PULSE 72; TEMP 98.6; O2SAT 93
--- NOTE | 2017-10-28 08:47 | ECHO ---
[email or web address] [address] [address] Main: [phone] Fax: Transthoracic Echocardiogram Name: CHEN BARBER MR#: [id number] Study Date: 10/28/2017 Study Time: 07:38 AM Date of : 1950 Age: 66 year(s) Height: 167.6 cm (66 in.) Weight: 72.58 kg (160 lb.) BSA: 1.82 m2 Gender: Female Examination: Echo Indication: Post EP Image Quality: Contrast: Requested by: Ernesto Corbin BP: 124 mmHg/72 mmHg Heart Rate: Rhythm: Indication: Post EP Procedure Staff Division Order Technician: Mao Dale Reading Physician: Lilia Pandey Requesting Provider: Conclusions: Normal size left ventricle. Normal global systolic LV function. EF is 78 %. No regional wall motion abnormality. Normal size right ventricle. Normal RV function. Mild to moderate aortic valve regurgitation. No pericardial effusion. Measurements: Chambers Valvular Assessment AV/MV Valvular Assessment TV/PV Normal Normal Normal Name Value Range Name Value Range Name Value Range Ao Aimee (MM): 3.6 cm (2.2 cm-3.7 AV Vmax: 1.51 m/s (1 m/s-1.7 TR Vmax: 3.30 mm/s ( - ) cm) m/s) TR PGmax: 44 mmHg ( - ) IVSd (2D): 0.8 cm (0.6 cm-1.1 AV maxP mmHg ( - ) syst. PAP: 49 mmHg ( - ) cm) LVOT Vmax: 0.96 m/s (0.7 m/s-1.1 PV Vmax: 0.73 m/s (0.6 m/s-0.9 LVDd (2D): 3.9 cm (3.9 cm-5.3 m/s) m/s) cm) AR (PHT): 561 ms ( - ) PV PGmax: 2 mmHg ( - ) LVDs (2D): 2.1 cm (2.1 cm-4 MV E Vmax: 0.85 m/s ( - ) cm) MV A Vmax: 0.63 m/s ( - ) LVPWd (2D): 0.8 cm ( - ) MV E/A: 1.35 ( - ) LVEF (2D): 78 (>=54 %) Continued Measurements: Chambers Valvular Assessment AV/MV Valvular Assessment TV/PV Name Value Name Value Name Value LADs Lon.6 cm MV E/E' Septal: 15.10 CVP (est.): 5 mmHg Patient: CHEN BARBER Study Date: 10/28/2017 Page 1 of 2 07:38 AM LA Area: 15.3 cm2 MV E/E' Lateral: 12.70 LA Volume: 48 ml AR Vmax: 3.69 cm/s LA Volume Index: 26.4 ml/m2 Findings: Left Ventricle: Normal size left ventricle. Normal global systolic LV function. EF is 78 %. No regional wall motion abnormality. Diastolic dysfunction is present. . Right Ventricle: Normal size right ventricle. Normal RV function. Left Atrium: The left atrium is normal in size. Right Atrium: The right atrium is normal in size. Mitral Valve: Mild mitral valve leaflet calcification is present. Trivial mitral valve regurgitation. Aortic Valve: The aortic valve is tri-leaflet. The aortic valve is normal in appearance. Mild to moderate aortic valve regurgitation. Tricuspid Valve: The tricuspid valve appears normal. There is no significant tricuspid valve regurgitation. Pulmonic Valve: The pulmonic valve is normal in appearance and function. Aorta: The aorta is normal. Pericardium: No pericardial effusion. (No Signature Object) Patient: CHEN BARBER Study Date: 10/28/2017 Page 2 of 2 07:38 AM D:_[id number]
--- NOTE | 2017-10-28 08:47 | CPEKG ---
Heart Rate: 83 RR Interval: 723 P-R Interval: 160 QRSD Interval: 100 QT Interval: 348 QTC Interval: 409 P [place]: 59 QRS [place]: 29 T Wave [place]: -41 EKG Severity - ABNORMAL ECG - EKG Impression: SINUS RHYTHM EKG Impression: NONSPECIFIC T ABNORMALITIES, DIFFUSE LEADS Electronically Signed By: Ernesto Corbin 28-Oct-2017 09:22:56
[2017-10-28] MEDS ORDERED: VENLAFAXINE XR 150 MG CAP PO SCH (09:00)
[2017-10-28] MEDS ORDERED: ASPIRIN 81 MG CHEWABLE TAB PO SCH (09:00)
[2017-10-28] MEDS ORDERED: ATENOLOL 25 MG TAB PO SCH (09:00)
[2017-10-28] MEDS ORDERED: ATORVASTATIN CALCIUM 10 MG TAB PO SCH (09:00)
[2017-10-28] MEDS ORDERED: buPROPion SR 100 MG TAB PO SCH (09:00)
--- NOTE | 2017-10-28 15:35 | ASDISCHSUM ---
Discharge Information Plan Status:Home with No Needs Medically Cleared to Leave:10/27/2017 Discharge Date:10/28/2017 03:20 PM CM D/C Disposition:Home, Routine, Self-Care ADT D/C Disposition:Home, Routine, Self-Care Projected Discharge Date:10/28/2017 12:00 AM Transportation at D/C:Family Discharge Delay Reason: Follow-Up Date:10/28/2017 12:00 AM Discharge Slot: Final Diagnosis: Placement Information Patient Contact Information Contact Name:YAYA Relationship:[place] Address: Work Phone: City:[place] Alternate Phone: [facility]/[employer] Code:BELLA Email: Financial Information Financial Class: Primary Plan Desc:MEDICAID [facility] [employer] Primary Plan Number:[id number] Secondary Plan Desc: Secondary Plan Number: Assessment Information [facility] CM Progress Note CM Note CM Note Notes: 10/27/2017 Case Management Note Reviewed chart. Pt admitted for ablation. No Case Management needs identified d/t pt age, family support and activity levels prior to admission. There are no PT or OT evals ordered. Case Management d/c poc: anticipating home independent when medically stable with follow up as directed. Case Management available if needs change. Date Signed: 10/27/2017 03:14 PM Electronically Signed By:Alicia Mcmahon RN Intervention Information
--- NOTE | 2017-10-29 04:39 | GDS ---
[f rep st] DISCHARGE SUMMARY DISCHARGE DIAGNOSES: 1. Supraventricular tachycardia. 2. Post atrioventricular perri reentrant tachycardia ablation. BRIEF HISTORY: This is a 66-year-old woman who has had symptoms of SVT for 20 years. These have at times required ER visits with EKG demonstrating SVT up to 185 beats per minute. She was having breakthrough episodes despite treatment with beta blockers. HOSPITAL COURSE: Dr. Corbin performed ablation of slow-fast AVNRT.Successful ablation of slow AV perri pathway with elimination of 1:1 antegrade conduction over the slow AV perri pathway. Post ablation, there was no inducible AVNRT. Patient has done well overnight. She denies any chest pain, pressure, or palpitations. She denies any bleeding or pain at her groin site. TESTING DONE: Echocardiogram demonstrates ejection fraction of 78% without wall motion abnormalities. Mitral valve leaflet is calcified. There is trivial MR and mild to moderate AR. No pericardial effusion. 12-lead EKG demonstrates sinus rhythm without acute ST-T wave changes. LABORATORY DATA: WBC is 5.64, hemoglobin 12.2, hematocrit 37.1. Sodium 144, potassium 4.1, chloride 108, bicarb 25, BUN 15, creatinine 0.9, glucose 95. CK 235. CK fraction is 3.94 and percent is 1.7. Troponin is 0.071. These are mildly elevated and to be expected post ablation. PHYSICAL EXAMINATION: VITAL SIGNS: Blood pressure is 124/72, pulse is 72, respirations 16, temperature is 37, O2 saturation on room air is 93%. GENERAL: She is alert and oriented, in good spirits, sitting up in bed. CARDIAC: Regular rate and rhythm without murmur, rub, or gallop. LUNGS: Clear to auscultation. ABDOMEN: Soft and nontender. Groin sites are without bleeding or hematoma. EXTREMITIES: Warm. No discoloration. No lower extremity edema. Bilateral +2 pedal pulses. DISCHARGE INSTRUCTIONS: Reviewed post ablation activity restrictions verbally, and she was given written instructions. Of note, she was advised not to strain , and she was concerned about this, so she was prescribed [id number] stool softener for the next few days. She was also scheduled to move apartments , and she was advised to not do this for at least another week as it would be too strenuous. DISCHARGE MEDICATIONS: Please see discharge medication reconciliation. Of note , she will take 81 mg of enteric-coated aspirin daily for 6 weeks post ablation. FOLLOWUP: She has a followup scheduled with Dr. Corbin on November 18 at 3:45. /[id number]/MODL MTDD
== END 2017-10-28 15:20 | disposition home or self-care (01) ==
LOC: FCATH 07:00 → F2N 11:14 → F2W 14:05
PROVIDERS: ADMIT Internal Medicine Cardiovascular Disease; ATTEND Internal Medicine Cardiovascular Disease
PROC: B2161ZZ Fluoroscopy of Right and Left Heart using Low Osmolar Contrast (ICD-10-PCS; principal; 2017-10-27)
PROC: 5A1223Z Performance of Cardiac Pacing, Continuous (ICD-10-PCS; principal; 2017-10-27)
PROC: 02563ZZ Destruction of Right Atrium, Percutaneous Approach (ICD-10-PCS; principal; 2017-10-27)
PROC: 02573ZZ Destruction of Left Atrium, Percutaneous Approach (ICD-10-PCS; principal; 2017-10-27)
PROC: 02H73MZ Insertion of Cardiac Lead into Left Atrium, Percutaneous Approach (ICD-10-PCS; principal; 2017-10-27)
PROC: 4A023FZ Measurement of Cardiac Rhythm, Percutaneous Approach (ICD-10-PCS; principal; 2017-10-27)
PROC: 025K3ZZ Destruction of Right Ventricle, Percutaneous Approach (ICD-10-PCS; principal; 2017-10-27)
PROC: 02K83ZZ Map Conduction Mechanism, Percutaneous Approach (ICD-10-PCS; principal; 2017-10-27)
DX: I47.1 Supraventricular tachycardia (principal)
CPT/HCPCS: 93005; 93306; 93613; 93621; 93623; 93653; C1730; C1732; C1893; C1731; J0153; J0461; J1644; J2250; J2370; J2704; J3010

== ENCOUNTER 2017-11-28 14:08 | Emergency (ER) | payer MEDICAID ==
--- NOTE | 2017-11-28 14:11 | EDPHY ---
H & P Source: Patient Exam Limitations: No limitations - Medical/Surgical History Hx Asthma: No Hx Chronic Respiratory Disease: No Hx Diabetes: No Hx Cardiac Disease: Yes Hx Renal Disease: No Hx Cirrhosis: No Hx Alcoholism: Yes Hx HIV/AIDS: No Hx Splenectomy or Spleen Trauma: No Other PMH: PTSD/depression, high cholesterol, kidney stones, SVT, MRI shows TBI- unknown eitolgy. Hx alcohol. short term memory, falls - Social History Smoking Status: Never smoked <Leyla Christie - Last Filed: 11/28/17 18:00> <AidenAnna S - Last Filed: 11/28/17 20:15> Time Seen by Provider: 11/28/17 14:26 HPI/ROS: HPI: This is a 66-year-old female who presents with Chief Complaint: Suicidal ideation Location:psych Quality: Severe depression with suicidal ideation Duration: 24 hr Signs and Symptoms:+ excessive crying, + decreased appetite, + insomnia, no auditory and visual command hallucinations, + suicidal ideation with a plan, no homicidal ideation, not paranoid Timing: Acute on chronic Severity: Severe Context: Patient has a history of depression, anxiety, posttraumatic stress disorder currently taking Wellbutrin and Effexor "for years" and followed by [facility] presents today with 1 day history of feeling like life is not worth living, wanting to , and thinking about taking all of her medications at once with alcohol in order to end her life. She had a recent break-up with her significant other that they were planning to moving together in the near future. She explains that he did not give her adequate reason as to why he does not want to be with her anymore. She had a prior suicide attempt in the past when she took large amounts of sleeping pills and drank alcohol requiring hospitalization. She reports that she has been on the same dose of Effexor and Wellbutrin for several years. [place] but has her own apartment. She denies having any family or friends support system. She reports that she normally puts on a happy face but lately when people ask her how she is loss over today she reports "terrible." She does understand why anyone does not understand that she is hurting inside and that she needs help. Patient denies any chest pain/shortness of breath/ abdominal pain/nausea/vomiting. She reports compliance on her regular medications. Modifying Factors: None Comment: ROS: see HPI Constitutional: No fever, no chills, no weight loss Eyes: No blurred vision Respiratory: No shortness of breath, no cough Cardiovascular: No chest pain Gastrointestinal: No nausea, no vomiting, no diarrhea Genitourinary: No dysuria Extremities: No myalgias Neurologic: No weakness, no numbness Skin: No rashes Hematologic: No bruising, no bleeding MEDICAL/SURGICAL/SOCIAL HISTORY: Medical history: PTSD/depression, high cholesterol, kidney stones, SVT, MRI shows TBI-unknown etiology. Hx alcohol. short term memory, falls Surgical history: Ablation Social history: Lives in a custodial community. Single. CONSTITUTIONAL: Tidy, polite, tearful elderly white female, awake and alert, no obvious distress HEENT: Atraumatic and normocephalic, PERRL, EOMI. Tympanic membranes clear. Oropharynx clear, no exudate and moist pink mucosa. Airway patent. No lymphadenopathy. No meningismus. Cardiovascular: Normal S1/S2, regular rate, regular rhythm, without murmur rub or gallop. PULMONARY/CHEST: Symmetrical and nontender. Clear to auscultation bilaterally. Good air movement. No accessory muscle usage. ABDOMEN: Soft, nondistended, nontender, no rebound, no guarding, no peritoneal signs, no masses or organomegaly. No CVAT. EXTREMITIES: 2/2 pulses, strength 5/5, no deformities, no clubbing, no cyanosis or edema. NEUROLOGICAL: no focal neuro deficits. GCS 15. SKIN: Warm and dry, no erythema. no rash. Good capillary refill. PSYCH: Poor eye contact, no flight of ideas, organized thought process, relatively good insight and judgment, no auditory and visual command hallucinations, + suicidal ideation with a plan, no homicidal ideation, not paranoid (Pratki,Terra) Constitutional: Initial Vital Signs Temperature (C) 36.8 C 11/28/17 14:13 Heart Rate 54 L 11/28/17 14:13 Respiratory Rate 16 11/28/17 14:13 Blood Pressure 154/88 H 11/28/17 14:13 O2 Sat (%) 96 11/28/17 14:13 O2 Delivery Mode Room Air Allergies/Adverse Reactions: Sulfa (Sulfonamide Antibiotics) Allergy (Intermediate, Verified 02/25/17 19:42) Hives Home Medications: Medication Instructions Recorded Donepezil HCl [Aricept] 10 mg PO HS 06/12/16 Herbals/Supplements -Info Only 1 ea PO DAILY 06/12/16 Venlafaxine Xr [Effexor Xr] 300 mg PO DAILY 06/12/16 buPROPion SR [Wellbutrin 100mg SR 100 mg PO DAILY 06/12/16 (*)] Atorvastatin Calcium [Lipitor 10 10 mg PO DAILY 10/20/17 mg (*)] Fluticasone Nasal [Flonase Nasal 1 sprays [place] DAILY PRN 10/20/17 [place]] Aspirin [Aspirin 81mg (*)] 81 mg PO DAILY tab.ec 10/28/17 Medical Decision Making <Leyla Christie - Last Filed: 11/28/17 18:00> <nAna Wolfe - Last Filed: 11/28/17 20:15> ED Course/Re-evaluation: 1420: Patient placed on M1 hold upon arrival as she is severely depressed and has an active plan to commit suicide to end her life. She has no step support system and lives alone. She is currently cooperative and not requiring any intervention. Labs and UDS ordered. 1550: Labs reviewed and grossly unremarkable. UDS positive for PCP. Medically clear for mental health evaluation. 1800: End of shift. Signed over to Dr. Wolfe pending mental health evaluation. This patient was seen under the supervision of my primary supervising physician. The patient was seen in conjunction with Dr. Wolfe, who saw and evaluated the patient. Patient's presentation, labs/imaging, treatment and plan of care were discussed with secondary supervising physician. (Leyla Christie) 18:00 I assumed care of this patient at shift change. 18:40 Mental health evaluation in progress. 19:50 Spoke with mental health aqueduct and reservoir keeper. He spoke at length with this patient and she is feeling better. He recommends outpatient follow up for this patient. Plan to drop M1 hold pending my interview. 20:10 Reassessed. Patient states "I just needed to talk to someone", and that she feels so much better "it's a miracle". She knows she can follow up at the crisis center or here if her suicidal ideation recurs. She does not feel like hurting herself anymore and feels safe to go home. Plan to discharge home in good condition. She is comfortable with this plan. (Anna Wolfe) Differential Diagnosis: Differential diagnosis includes but is not limited to functional and or situational depression, severe major depression without psychotic features, suicidal ideation with a plan, lack of medication optimization. (Leyla Christie) - Data Points Laboratory Results: Laboratory Results 11/28/17 14:30 11/28/17 14:30 11/28/17 11/28/17 11/28/17 15:30 14:30 14:30 WBC 6.07 10^3/uL 10^3/uL (3.80-9.50) RBC 4.48 10^6/uL 10^6/uL (4.18-5.33) Hgb 12.7 g/dL g/dL (12.6-16.3) Hct 38.5 % % (38.0-47.0) MCV 85.9 fL fL (81.5-99.8) MCH 28.3 pg pg (27.9-34.1) MCHC 33.0 g/dL g/dL (32.4-36.7) RDW 12.3 % % (11.5-15.2) Plt Count 270 10^3/uL 10^3/uL (150-400) MPV 9.9 fL fL (8.7-11.7) Neut % (Auto) 56.2 % % (39.3-74.2) Lymph % (Auto) 31.3 % % (15.0-45.0) [place] % (Auto) 10.5 % % (4.5-13.0) Eos % (Auto) 0.8 % % (0.6-7.6) Baso % (Auto) 0.7 % % (0.3-1.7) Nucleat RBC Rel Count 0.0 % % (0.0-0.2) Absolute Neuts (auto) 3.41 10^3/uL 10^3/uL (1.70-6.50) Absolute Lymphs (auto) 1.90 10^3/uL 10^3/uL (1.00-3.00) Absolute Monos (auto) 0.64 10^3/uL 10^3/uL (0.30-0.80) Absolute Eos (auto) 0.05 10^3/uL 10^3/uL (0.03-0.40) Absolute Basos (auto) 0.04 10^3/uL 10^3/uL (0.02-0.10) Absolute Nucleated RBC 0.00 10^3/uL 10^3/uL (0-0.01) Immature Gran % 0.5 % % (0.0-1.1) Immature Gran # 0.03 10^3/uL 10^3/uL (0.00-0.10) Sodium 143 mEq/L mEq/L (134-144) Potassium 4.4 mEq/L mEq/L (3.5-5.2) Chloride 106 mEq/L mEq/L (97-110) Carbon Dioxide 23 mEq/l mEq/l (22-31) Anion Gap 14 mEq/L mEq/L (8-16) BUN 11 mg/dL mg/dL (7-23) Creatinine 1.1 mg/dL H mg/dL (0.6-1.0) Estimated GFR 50 Glucose 112 mg/dL H mg/dL (70-100) Calcium 10.4 mg/dL mg/dL (8.5-10.4) Urine Opiates Screen NEGATIVE (NEGATIVE) Urine Barbiturates NEGATIVE (NEGATIVE) Ur Phencyclidine Scrn NON-NEGATIVE H (NEGATIVE) Ur Amphetamine Screen NEGATIVE (NEGATIVE) U Benzodiazepines Scrn NEGATIVE (NEGATIVE) Urine Cocaine Screen NEGATIVE (NEGATIVE) U Marijuana (THC) Screen NEGATIVE (NEGATIVE) Ethyl Alcohol < 10 mg/dL mg/dL (0-10) Departure <Leyla Christie - Last Filed: 11/28/17 18:00> <Anna Wolfe - Last Filed: 11/28/17 20:15> - Departure Disposition: Home, Routine, Self-Care Clinical Impression: Severe major depression, Suicidal ideations Condition: Good Instructions: Suicide Prevention for Adults (ED) Additional Instructions: 1. Follow up with mental health providers as discussed. Referrals: Alicia Madera MD [Primary Care Provider] - As per Instructions <Leyla Christie - Last Filed: 11/28/17 18:00> Report Scribed for: Anna Wolfe Report Scribed by: Bebe Marin Date of Report: 11/28/17 Time of Report: 20:15 <Anna Wolfe - Last Filed: 11/28/17 20:15> Physician Review and Approval Statement: 11/28/17 20:15 Portions of this note were transcribed by a medical coding specialist. I personally performed a history, physical exam, medical decision making, and confirmed accuracy of information the transcribed note. (Anna Wolfe)
[2017-11-28 14:16] VITALS: TEMP 98.2
[2017-11-28 14:39] LABS: PLATELET COUNT 270 10^3/uL (150-400)
[2017-11-28 20:28] VITALS: BP 130/80; PULSE 85; RESP 19; O2SAT 95
== END 2017-11-28 20:28 | disposition home or self-care (01) ==
LOC: EDUNIT#
DX: R45.851 Suicidal ideations (principal); F32.2 Major depressive disorder, single episode, severe without psychotic features; Z79.82 Long term (current) use of aspirin
CPT/HCPCS: 80305; G0480

== ENCOUNTER 2019-05-23 09:47 | Day surgery (SDC) | payer OTHER, MEDICAID | END 2019-05-23 14:06 | disposition home or self-care (01) | LOC: FSGY 09:47 ==